=== PATIENT | female | born 1995 | race Two or more races ===

== ENCOUNTER 2020-02-11 12:54 | Emergency (ER) | payer OTHER ==
[~2020-02-11] VITALS: Ht 147.3 cm; Wt 72.6 kg
[2020-02-11] MEDS ORDERED: VITATRUE COMBO1 EACH PO (13:04)
[2020-02-11] MEDS ORDERED: SYNTHROID112 MCG PO (13:04)
== END 2020-02-11 18:36 | disposition home or self-care (01) ==
LOC: ER 12:54
DX: O26.891 Other specified pregnancy related conditions, first trimester (principal); E16.1 Other hypoglycemia; R42 Dizziness and giddiness; Z3A.12 12 weeks gestation of pregnancy; Z20.828 Contact with and (suspected) exposure to other viral communicable diseases

== ENCOUNTER 2020-03-25 11:27 | Emergency (ER) | payer OTHER ==
[~2020-03-25] VITALS: Ht 147.3 cm; Wt 74.4 kg
[~2020-03-25 11:27] MED LIST: SYNTHROID112 MCG PO; VITATRUE COMBO1 EACH PO
== END 2020-03-25 18:01 | disposition home or self-care (01) ==
LOC: ER 11:27
DX: O26.842 Uterine size-date discrepancy, second trimester (principal); O26.892 Other specified pregnancy related conditions, second trimester; R10.2 Pelvic and perineal pain; O36.80X0 Pregnancy with inconclusive fetal viability, not applicable or unspecified; O26.852 Spotting complicating pregnancy, second trimester; Z20.828 Contact with and (suspected) exposure to other viral communicable diseases

== ENCOUNTER 2020-04-08 09:51 | Emergency (ER) | payer OTHER ==
[~2020-04-08] VITALS: Ht 147.3 cm; Wt 75.7 kg
[2020-04-08] MEDS ORDERED: DUI500 PO (15:01)
== END 2020-04-08 15:00 | disposition home or self-care (01) ==
LOC: ER 09:51
DX: B34.9 Viral infection, unspecified (principal); N39.0 Urinary tract infection, site not specified; Z03.818 Encounter for observation for suspected exposure to other biological agents ruled out

== ENCOUNTER 2020-04-30 13:45 | Outpatient (CLI) | payer OTHER ==
[~2020-04-30 13:45] MED LIST changes: +DUI500 PO
== END 2020-05-01 17:42 | disposition home or self-care (01) ==
LOC: OBS/DEL 13:45
PROVIDERS: ATTEND Obstetrics & Gynecology
DX: O26.892 Other specified pregnancy related conditions, second trimester (principal); R10.2 Pelvic and perineal pain; O60.02 Preterm labor without delivery, second trimester

== ENCOUNTER 2020-05-18 15:44 | Outpatient (CLI) | payer OTHER | END 2020-05-19 11:15 | disposition home or self-care (01) | LOC: OBS/DEL 15:44 | PROVIDERS: ATTEND Obstetrics & Gynecology | DX: O26.842 Uterine size-date discrepancy, second trimester (principal); O60.02 Preterm labor without delivery, second trimester; O26.892 Other specified pregnancy related conditions, second trimester; R10.2 Pelvic and perineal pain ==

== ENCOUNTER 2020-07-21 17:19 | Outpatient (CLI) | payer OTHER | END 2020-07-22 09:47 | disposition home or self-care (01) | LOC: OBS/DEL 17:19 | PROVIDERS: ATTEND Obstetrics & Gynecology | DX: O26.843 Uterine size-date discrepancy, third trimester (principal); R10.2 Pelvic and perineal pain; Z3A.35 35 weeks gestation of pregnancy ==

== ENCOUNTER 2020-08-10 08:15 | Outpatient (CLI) | payer OTHER | END 2020-08-10 10:46 | disposition home or self-care (01) | LOC: OBS/DEL 08:15 | PROVIDERS: ATTEND Obstetrics & Gynecology | DX: O26.893 Other specified pregnancy related conditions, third trimester (principal); R10.2 Pelvic and perineal pain; Z3A.38 38 weeks gestation of pregnancy ==

== ENCOUNTER 2020-08-12 14:52 | Inpatient (IN) | payer OTHER ==
[~2020-08-12] VITALS: Ht 147.3 cm; Wt 78.9 kg
== END 2020-08-15 13:09 | disposition home or self-care (01) | DRG 807 ==
LOC: OB/GYN 14:52 → LDR 14:52 → OB/GYN 08-13 01:29
PROVIDERS: ADMIT Obstetrics & Gynecology; ATTEND Obstetrics & Gynecology
PROC: 3E0P7VZ Introduction of Hormone into Female Reproductive, Via Natural or Artificial Opening (ICD-10-PCS; 2020-08-12)
PROC: 4A1HXFZ Monitoring of Products of Conception, Cardiac Rhythm, External Approach (ICD-10-PCS; 2020-08-12)
PROC: 10E0XZZ Delivery of Products of Conception, External Approach (ICD-10-PCS; principal; 2020-08-13)
PROC: 0HQ9XZZ Repair Perineum Skin, External Approach (ICD-10-PCS; 2020-08-13)
PROC: 10907ZC Drainage of Amniotic Fluid, Therapeutic from Products of Conception, Via Natural or Artificial Opening (ICD-10-PCS; 2020-08-13)
DX: O42.02 Full-term premature rupture of membranes, onset of labor within 24 hours of rupture (principal); Z37.0 Single live birth; O70.0 First degree perineal laceration during delivery; O99.824 Streptococcus B carrier state complicating childbirth; Z3A.38 38 weeks gestation of pregnancy; Z20.822 Contact with and (suspected) exposure to COVID-19